=== PATIENT | female | born 1995 | race Caucasian/White ===

== ENCOUNTER → 2021-07-28 12:12 | Outpatient (CLI) | payer OTHER, SELFPAY ==
--- NOTE | 2021-07-28 12:15 | DI.US.S_ITS ---
PROCEDURE: US OB LIMITED INDICATIONS: SIZE> DATES LIMITED CARE OUTSIDE/PRIOR DATING DATA: Last menstrual period (LMP): November 13, 2020 . LMP-based estimated date of delivery (LESLY): August 20, 2021 . First dating scan (date and location): July 28, 2021 . Estimated date of delivery (LESLY) from first dating scan: August 07, 2021 . TECHNIQUE: Real-time scanning was performed of the fetus, with image documentation and biometric measurements. Endovaginal scanning: Not performed COMPARISON: None. FINDINGS: General: A single living intrauterine gestation is present. Presentation: Cephalic. Placenta: Placental position is anterior , without previa. Amniotic fluid index: 9.5 cm, normal range is 5-24 cm. heart rate: 158 beats per minute. Maternal cervical canal: 3.8 cm long. Normal lower limit is 2.5 cm. biometrics: Biparietal diameter: 9.1 cm, correlating with 36 weeks and 5 days Head circumference: 33.2 cm, correlating with 37 weeks and 6 days Abdominal circumference: 33.2 cm, correlating with 37 weeks and 1 day Femur length: 7.2 cm, correlating with 36 weeks and 6 days Estimated gestational age from initial scan: not applicable. Composite gestational age from present scan: 37 weeks and 1 day (versus 36 weeks and 5 days by clinical dating). Estimated weight and percentile: 3108 g. Percentile not able to be calculated. Measurement variability for biometric dating: +/- 7 days from 14 weeks to 15 weeks 6 days gestation, +/- 10 days from 16 weeks to 21 weeks 6 days gestation, +/- 2 weeks from 22 weeks to 27 weeks 6 days gestation, +/- 3 weeks for 28 weeks gestation or later. weight reference: 4500 g or EFW >90/95% is considered macrosomia or large for gestational age. EFW <10% is small for gestational age. EFW 5% or less is considered intra-uterine growth restriction. Other: Limited visualization of the anatomic structures appear unremarkable. Incidental note of mildly prominent renal pelvis measuring 3 mm on the right (normal) and 8 mm on the left (mild dilatation) IMPRESSION: 1. Single living intrauterine gestation with estimated sonographic gestational age of approximately 37 weeks and 1 day. Estimated weight of approximately 3108 g which correlates with the 65th percentile based off gestational age. Estimated dated delivery of approximately August 07, 2021 is concordant with estimated dated delivery by last menstrual period of June 20, 2021. 2. Minimal left renal pelvic prominence measuring 8 mm in AP dimension. This may be transient or physiologic. Recommend follow-up renal ultrasound 48 hours after delivery. Dictated by: Chino Richardson M.D. on 07/28/2021 at 15:10 Approved by: Chino Richardson M.D. on 07/28/2021 at 15:20
== END ==
PROVIDERS: Referring Provider Obstetrics & Gynecology; Visit Provider Obstetrics & Gynecology
DX: O26.843 Uterine size-date discrepancy, third trimester (principal); O09.33 Supervision of pregnancy with insufficient antenatal care, third trimester; Z3A.37 37 weeks gestation of pregnancy
CPT/HCPCS: 76815

== ENCOUNTER 2021-08-10 12:39 | Outpatient (CLI) | payer OTHER, SELFPAY ==
--- NOTE | 2021-08-11 07:54 | PM.OBTRLD ---
Visit Information Visit Information Date of evaluation: 08/10/21 Primary OB Provider: Roland Leahy Reason for Evaluation: Yes non-stress test and Yes rupture of membranes Comments/Additional reasons for admission: Patient states she has been having episodic leakage of fluid x5 days. [facility] Medical History (Updated 07/22/21 @ 15:56 by Roland Leahy MD) COVID-19 (~06/2021) (spontaneous vaginal delivery) (~01/17/16) (spontaneous vaginal delivery) (~08/09/17) Surgical History (Updated 07/22/21 @ 09:39 by Yolande Ford, RN) S/P laparoscopic appendectomy (~2014) [place] teeth extracted Family History (Updated 07/22/21 @ 09:38 by Yolande Ford, SAMNATHA) Father No problems noted. 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 Follow-up will be in 1 week or as needed. OB Disposition: home
== END 2021-08-10 13:28 | disposition home or self-care (01) ==
LOC: LABOR 13:29 → OB 08-17 03:09
PROVIDERS: Referring Provider Obstetrics & Gynecology; Visit Provider Obstetrics & Gynecology
DX: Z03.71 Encounter for suspected problem with amniotic cavity and membrane ruled out (principal); Z3A.38 38 weeks gestation of pregnancy
CPT/HCPCS: 59025; 84112; G0378; G0379

== ENCOUNTER 2021-08-21 10:25 | Inpatient (IN) | payer OTHER, SELFPAY ==
[2021-08-21] MEDS: LACTATED RINGERS 1,000 ML 100 ML IV (11:10)
[2021-08-21 11:32] LABS: Add Manual Diff / Slide Review NO; Basophils Absolute Auto 0 /uL (0-100); Basophils Percent Auto 0.2 % (0-2); Eosinophils Absolute Auto 0 /uL (0-450); Eosinophils Percent Auto 0.1 % (2-4); Hematocrit 34.9 % (36-46); Hemoglobin 11.7 g/dL (12.0-16.0); Lymphocytes Absolute Auto 1300 /uL (1100-4500); Mean Corpuscular HGB Conc 33.7 % (30-36); Mean Corpuscular Hemoglobin 29.4 PG (26-34); Mean Corpuscular Volume 87.5 fL (80-100); Monocytes Absolute Auto 400 /uL (0-900); Monocytes Percent Auto 4.1 % (3-14); Neutrophils Absolute Auto 9100 /uL (1500-7000); Neutrophils Percent Auto 83.6 % (50-75); Platelet Count 191 X10^3/uL (150-400); Red Blood Cell Count 3.99 X10^6/uL (4.0-5.2); Red Cell Distribution Width 14.1 % (11.6-14.8); White Blood Cell Count 10.9 X10^3/uL (4.5-11.0)
[2021-08-21] MEDS: PENICILLIN G POTASSIUM 5,000,000 UNIT in DEXTROSE 5% IN WATER 250 ML IV (11:50)
--- NOTE | 2021-08-21 11:52 | PM.OBHP.1 ---
OB HPI Date/Time Date of admission: 08/21/21 Date Patient Seen: 08/21/21 Time Patient Seen: 11:52 History of Present Condition Chief complaint: : 3 Para: 2 Estimated Date of Delivery: 08/20/21 Estimated Gestational Age (weeks): 40 1/7 Narrative: Neli Mcgraw is a 26 year old female G3 para 2 estimated due date of 08/20/2021 consistent with LMP she is 40 weeks and 1/7 gestational age comes in complaints rupture of membranes she says her water started leaking at approximately 3:00 a.m. this morning she has been leaking ever since. Presented to the labor and delivery floor. AmniSure was positive. She says her previous pregnancies her water did not break. Two previous vaginal deliveries. Patient has no headache dizziness lightheadedness chest pain fevers or chills. Amniotic fluid is clear. She says she has had no complication during the . She has a late transfer of care from [place]. She has a previous history of GBS positive status in her 2 previous pregnancies GBS positive and received prophylaxis GBS status was not done this time. History of Present care: good care Dating criteria: LMP confirmed by 1st trimester US Ultrasounds: normal 1st trimester US and normal mid trimester US Obstetrical complications: none Medical complications: none Preadmission Labs Blood type: O (+) positive -: Antibody screen: negative, Cystic fibrosis screen: unknown, GBS status: unknown, HBsAG: negative, HIV: negative, HSV 1: unknown, HSV 2: unknown and RPR/VDLR: negative -: Chlamydia screen: not detected and Gonorrhea screen: not detected -: Rubella: immune and Varicella: unknown PAP: Normal Cell-free DNA: unknown Narrative: hba1c 4.7 Evaluation Evaluation Baseline heart rate: 145 Variability: Moderate (11-25) monitor accelerations: Present Monitor Decelerations: Absent Category of Tracing: Reactive Status: Category l Cervical dilation (cm): 2 Cervical effacement (%): 80 station: -2 Non-invasive Membranes Rupture Test: positive PFSH Medical History COVID-19 (~06/2021) (spontaneous vaginal delivery) (~01/17/16) (spontaneous vaginal delivery) (~08/09/17) Surgical History S/P laparoscopic appendectomy (~2014) [place] teeth extracted Family History Father No problems noted. 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 Smoking Status: Former smoker Tobacco: How many years used: 5 quit status: quit date established (Quit X 1.5 years ago) second hand exposure: No alcohol intake: former (pre- : rare use) substance use type: does not use Meds Home Medications and Allergies Home Medications Medication Instructions Recorded Confirmed Type ondansetron HCl 4 mg tablet 4 mg PO .PRN tab 07/22/21 08/21/21 History (Zofran) prenat.vits,cheyanne,uha-qaea-elwww 1 tab PO DAILY 07/22/21 08/21/21 History Allergies Allergy/AdvReac Type Severity Reaction Status Date / Time morphine Allergy Intermediate Hives and Verified 07/22/21 09:09 Vomiting Exam Vital Signs (past 8 hours): General: Alert no apparent distress. Affect is appropriate. HEENT: Neck is supple without lymphadenopathy pupils equal round and reactive. Cardio: S1-S2 regular rate and rhythm. Respiratory: Lungs clear to auscultation. Abdomen: Gravid. Extremities: Normal deep tendon reflexes trace edema. Objective Labs Result Diagrams: 08/21/21 11:10 Labs: Laboratory Results - last 24 hr 08/21/21 11:10 WBC 10.9 RBC 3.99 L Hgb 11.7 L Hct 34.9 L MCV 87.5 MCH 29.4 MCHC 33.7 RDW 14.1 Plt Count 191 Neut % (Auto) 83.6 H Lymph % (Auto) 12.0 L [place] % (Auto) 4.1 Eos % (Auto) 0.1 L Baso % (Auto) 0.2 Neut # (Auto) 9100 H Lymph # (Auto) 1300 [place] # (Auto) 400 Eos # (Auto) 0 Baso # (Auto) 0 Assessment and Plan Assessment and Plan Assessment and Plan narrative: 26-year-old G3 para 240 weeks gestational age with spontaneous rupture of membranes and vital signs are normal not melissa category 1 tracing. Patient's GBS status is unknown start penicillin per protocol. Cervix shows 80% effaced 2 cm dilated-2 station anterior and soft. Discussed labor plan with patient. Consents were obtained in orders were written for. Patient would like to try natural childbirth at this time. Proven pelvis. Pain medication epidural anesthesia as needed. Start Pitocin per protocol as she has been ruptured since 3:00 a.m. this morning
[2021-08-21 12:29] LABS: COVID19 - ADMIT (NP swab/PCR) Negative (Negative)
[2021-08-21] MEDS: OXYTOCIN PREMIX 30 UNIT/500 ML PLAST..BAG IV (14:04)
[2021-08-21 14:20] VITALS: BP 118/78
[2021-08-21] MEDS: PENICILLIN G POTASSIUM 3,000,000 UNIT/50 ML FROZ.PIGGY 100 UNIT IV (15:37)
[2021-08-21] MEDS: FENT 2MCG/ML BUPIV 0.125% EPI 200 MCG/100 ML PLAST..BAG 13 MCG EPIDURAL (15:54)
[2021-08-21] MEDS: ONDANSETRON 4 MG/2 ML INJ IV (16:34)
--- NOTE | 2021-08-21 17:07 | PM.OBPRVD ---
Events: Labor Augmentation Labor & Delivery Delivery date: 08/21/21 Intrapartal Events: None Cervical ripening method: none Induction method: none Delivery augmentation: pitocin Delivery monitor: external FHT and external uterine Route of delivery: L&D Laceration Description: Vaginal - 2nd Degree Delivery repair: chromic Estimated blood loss (mL): 400 Anesthesia Type: Spinal Complications: Non Plan for aftercare: Routine care
[2021-08-21] MEDS: METHYLERGONOVINE 0.2 MG TABLET PO (18:02)
[2021-08-21 20:44] VITALS: TEMP 36.1
[2021-08-21] MEDS: IBUPROFEN 600 MG TABLET PO (20:44)
[2021-08-21] MEDS: DERMOPLAST SPRAY 20% 60 ML 1 SPRAY TOP (20:45)
[2021-08-22] MEDS: IBUPROFEN 600 MG TABLET PO ×2 (03:01→12:17)
[2021-08-22 06:36] LABS: Hematocrit 29.7 % (36-46); Hemoglobin 9.9 g/dL (12.0-16.0)
--- NOTE | 2021-08-22 07:23 | P.DS_ITS ---
Discharge Providers Provider Date of admission: 08/21/21 10:25 Discharge Date: 08/22/21 Primary care physician: Doctor Fernando MD Consults: 08/22/21 17:09 Consult to Coiled Tubing Operator Routine Comment: Discharge provider: Tylor Reina MD Summary Hospital Course Date Patient Seen: 08/22/21 Time Patient Seen: 07:24 Diagnoses: Delivery a viable female vaginally Hospital Course: Patient presented to the labor and delivery floor in active labor. Patient delivered a viable term female without complication. Patient had routine care. Time of discharge vital signs were stable she was eating ambulating. Pain was controlled with Tylenol and ibuprofen. She will have a follow-up appointment at [address] Leahy Peripartum Data Delivery Method: Natural Vaginal Laceration Description: None complications: none Status at Discharge Cognitive/behavioral status at discharge: oriented Functional status at discharge: independent ambulation Overall status at discharge: patient is back to baseline Time Spent with Patient Time attestation: Total time spent providing and/or coordinating discharge services: Time spent: Less than 30 minutes Objective Labs Result Diagrams: 08/22/21 06:15 Labs: Laboratory Results - last 24 hr 08/21/21 08/21/21 08/21/21 11:10 11:10 11:10 WBC 10.9 RBC 3.99 L Hgb 11.7 L Hct 34.9 L MCV 87.5 MCH 29.4 MCHC 33.7 RDW 14.1 Plt Count 191 Neut % (Auto) 83.6 H Lymph % (Auto) 12.0 L [place] % (Auto) 4.1 Eos % (Auto) 0.1 L Baso % (Auto) 0.2 Neut # (Auto) 9100 H Lymph # (Auto) 1300 [place] # (Auto) 400 Eos # (Auto) 0 Baso # (Auto) 0 SARS-CoV-2 (PCR) Negative Blood Type O Positive Antibody Screen Negative 08/22/21 06:15 WBC RBC Hgb 9.9 L Hct 29.7 L MCV MCH MCHC RDW Plt Count Neut % (Auto) Lymph % (Auto) [place] % (Auto) Eos % (Auto) Baso % (Auto) Neut # (Auto) Lymph # (Auto) [place] # (Auto) Eos # (Auto) Baso # (Auto) SARS-CoV-2 (PCR) Blood Type Antibody Screen Discharge Plan Discharge Plan Patient Disposition: Home Provider Discharge Comment: Follow-up Dr. Leahy 6 weeks Discharge orders & Medications Prescriptions: New docusate sodium 100 mg Capsule 100 mg PO DAILY Qty: 20 RF: 0 ibuprofen 600 mg Tablet 600 mg PO Q6HR PRN (Reason: Pain, Mild (1-3)) Qty: 30 RF: 0 Continued prenat.vits,cheyanne,qcy-zjqs-hijjm Tablet 1 tab PO DAILY RF: 0 Discontinued ondansetron HCl [Zofran] 4 mg tablet 4 mg PO .PRN RF: 0 Follow up/Referrals: Doctor Fernando, [Primary Care Provider] - Visit Report/Discharge Packet Visit Report Forms: Patient Portal/API, Stroke Signs & Symptoms Discharge Data Primary Care Provider: Doctor Fernando Attending Provider: Tylor Reina Admit Date/Time: 08/21/21 10:25
[2021-08-22 08:54] VITALS: BP 107/79; PULSE 88; RESP 16; TEMP 36.8
[2021-08-22] MEDS: PRENATAL VIT,CALC/IRON/FOLIC 1 TABLET 1 TAB PO (12:18)
[2021-08-22] MEDS: DOCUSATE 100 MG CAPSULE PO (12:18)
[2021-08-22 15:25] VITALS: BP 115/79; PULSE 101; RESP 16; TEMP 36.4
== END 2021-08-22 16:12 | disposition home or self-care (01) | DRG 807 ==
PROVIDERS: Admitting Provider Family Medicine; Referring Provider Family Medicine; Visit Provider Family Medicine
DX: O48.0 Post-term pregnancy (principal); Z37.0 Single live birth; O70.1 Second degree perineal laceration during delivery; Z3A.40 40 weeks gestation of pregnancy; O42.02 Full-term premature rupture of membranes, onset of labor within 24 hours of rupture; Z86.16 Personal history of COVID-19; Z20.822 Contact with and (suspected) exposure to COVID-19
CPT/HCPCS: 01967; 36415; 59050; 59410; 84112; 85014; 85018; 85025; 86850; 86900; 86901; 87635; C9803; G0379; J2405; J2540; J2590